=== PATIENT | female | born 1975 | race Caucasian/White ===

== ENCOUNTER 2016-11-14 22:30 | Emergency (ER) | payer OTHER ==
[~2016-11-14] VITALS: Ht 165.1 cm; Wt 90.5 kg
[~2016-11-14 22:30] MED LIST: ABILIFY5 MG PO; ADIPEX-P37.5 MG PO; ALBUTEROL0.09 MG/A1 IH; ALDACTONE 25MG25 M1 PO; AMOXICILLIN 50500 MG PO; ASPIRIN E.C. 8181 MG PO; ATIVAN 1MG T1 MG/TAB PO; ATIVAN0.5 MG PO; AUGMENTIN 875 M1 TAB PO; BACTRIM DS 8001 TA1 PO; BACTRIM DS 8001 TAB PO; CELEXA10 MG PO; Dayquil; FIORICET 325 MG1 TA1 PO; FISH OIL1000 MG PO; FLEXERIL 1010 MG/TAB PO; FLEXERIL10 MG PO; FLOMAX0.4 MG PO; IBU800 M1 PO; KETOROLAC10 MG PO; LIPITOR 40MG TA40 MG PO; LORTAB 5/500 501 TAB PO; MEDROL 4MG DOSPA4 MG PO; MIDOL; MOTRIN 800800 MG/TAB PO; MUCINEX D 600 M1 TER PO; NAPROSYN500 MG PO; NO HOME MEDICATIONS; NORCO 325 MG-51 TAB PO; PERCOCET 325 MG1 TA2 PO; PERCOCET 5/321 UDTAB PO; PHENERGAN 25 TA25 MG PO; PHENTERAMINE; PHENTERMINE30 MG PO; PLAVIX 75MG TAB75 MG PO; PRINIVIL2.5 MG PO; PYRIDIUM200 M1 PO; THALITONE15 MG; TYLENOL PM; ULTRAM 50MG TAB50 MG; ULTRAM 50MG TAB50 MG PO; UNABLE; VICODIN 5/5001 UDTAB PO; XANAX .25M0.25 MG/TA PO; XANAX 1MG1 MG PO; ZOFRAN 4MG T4 MG/TAB PO; [UNRECOGNIZED DRUG - OTHER]; [UNRECOGNIZED DRUG - REMARK]
[2016-11-14 22:41] VITALS: TEMP 98
[2016-11-14 23:47] LABS: COLLECTION METHOD CLEAN CATCH
[2016-11-14 23:54] LABS: MUCOUS Present /lpf; PH 6 (5-8); SQUAMOUS EPITHELIAL 0-2 /hpf; URINE APPEARANCE Clear; URINE BACTERIA None Seen /hpf; URINE BILIRUBIN Negative (NEGATIVE); URINE BLOOD Negative (NEGATIVE); URINE COLOR Yellow; URINE GLUCOSE Negative (NEGATIVE); URINE KETONE Negative (NEGATIVE); URINE LEUKOCYTE ESTERASE Negative (NEGATIVE); URINE PROTEIN(semi-quant) Negative (NEGATIVE); URINE RBC 0-2 /hpf; URINE UROBILINOGEN Negative (NEGATIVE); URINE WBC 0-2 /hpf
[2016-11-15 00:14] LABS: BASO % 0.2 % (0.0-2.0); EOS # 0.2 (0.0-0.7); GRAN # 6.4 (1.4-6.5); GRAN % 58.1 % (42.2-75.2); HEMATOCRIT 43.2 % (37.0-47.0); HEMOGLOBIN 14.9 g/dl (12.5-16.0); LYMPH # 3.6 (1.2-3.4); MEAN CELL VOLUME 92 fl (80.0-100.0); MEAN CORPUSCULAR HEMOGLOBIN 32 pg (27.0-31.0); MEAN CORPUSCULAR HGB CONC 35 g/dl (33.0-37.0); MEAN PLATELET VOLUME 10.4 fl (7.4-10.4); MONO # 0.7 (0.1-0.6); MONO % 6.3 % (1.7-9.3); PLATELET COUNT 228 K/mm3 (130-400); RED BLOOD COUNT 4.69 M/mm3 (4.10-5.30)
[2016-11-15 00:28] LABS: ADJUSTED CALCIUM 9.1 mg/dL (8.4-10.2); ALBUMIN 4.3 gm/dL (3.5-5.0); BILIRUBIN,TOTAL 0.6 mg/dL (0.0-1.0); CALCIUM 9.3 mg/dL (8.4-10.2); CREATININE, serum 0.8 mg/dL (0.52-1.25); POTASSIUM 4.3 mmol/L (3.4-5.0); TOTAL PROTEIN 7.4 gm/dL (6.4-8.2)
[2016-11-15 01:05] VITALS: BP 128/80; PULSE 92
[2016-11-15 11:06] LABS: CHLAMYDIA/TRACH by PCR Female NOT DETECTED; NEISSERIA GON by PCR Female NOT DETECTED
== END 2016-11-15 01:07 | disposition home or self-care (01) ==
LOC: COL.ER 22:30
PROVIDERS: Nurse Practitioner
DX: R10.32 Left lower quadrant pain (principal); M54.5 Low back pain; R11.0 Nausea; Z87.442 Personal history of urinary calculi; I25.2 Old myocardial infarction; F17.210 Nicotine dependence, cigarettes, uncomplicated; N89.8 Other specified noninflammatory disorders of vagina
CPT/HCPCS: J1885; J2405; J7030

== ENCOUNTER 2016-12-11 20:33 | Emergency (ER) | payer OTHER ==
[~2016-12-11] VITALS: Ht 165.1 cm; Wt 90.0 kg
[2016-12-11 20:36] VITALS: TEMP 98.8
[2016-12-11] MEDS ORDERED: PERCOCET 325 MG1 TA2 PO (20:40)
[2016-12-11 23:18] VITALS: BP 128/94; PULSE 100
== END 2016-12-11 22:57 | disposition home or self-care (01) ==
LOC: COL.ER 20:33
DX: M79.661 Pain in right lower leg (principal); F32.9 Major depressive disorder, single episode, unspecified; F41.9 Anxiety disorder, unspecified
CPT/HCPCS: J1885

== ENCOUNTER 2017-12-02 01:38 | Emergency (ER) | payer OTHER ==
[2017-12-02 01:44] VITALS: TEMP 97
[2017-12-02] MEDS ORDERED: PERCOCET 325 MG1 TA2 PO (01:59)
[2017-12-02] MEDS ORDERED: KLONOPIN2 MG PO (01:59)
[2017-12-02] MEDS ORDERED: TOPROL XL 50MG50 MG PO (02:00)
[2017-12-02 02:07] LABS: BASO % 0.3 % (0.0-2.0); EOS # 0.4 (0.0-0.7); EOS % 3.4 % (0-4.0); GRAN # 5.4 (1.4-6.5); GRAN % 52.7 % (42.2-75.2); HEMATOCRIT 41.5 % (37.0-47.0); HEMOGLOBIN 14.6 g/dl (12.5-16.0); LYMPH # 3.8 (1.2-3.4); LYMPH % 36.7 % (20.0-51.0); MEAN CELL VOLUME 91 fl (80.0-100.0); MEAN CORPUSCULAR HEMOGLOBIN 32 pg (27.0-31.0); MEAN CORPUSCULAR HGB CONC 35 g/dl (33.0-37.0); MEAN PLATELET VOLUME 8.9 fl (7.4-10.4); MONO # 0.7 (0.1-0.6); MONO % 6.6 % (1.7-9.3); PLATELET COUNT 226 K/mm3 (130-400); RED BLOOD COUNT 4.58 M/mm3 (4.10-5.30); REDCELL DISTRIBUTION WIDTH-CV 12.8 % (11.5-14.5)
[2017-12-02] MEDS ORDERED: ADIPEX-P37.5 MG PO (02:13)
[2017-12-02 02:18] LABS: ALBUMIN 4.2 gm/dL (3.5-5.0); BILIRUBIN,TOTAL 0.3 mg/dL (0.0-1.0); CALCIUM 9.1 mg/dL (8.4-10.2); CREATININE, serum 0.74 mg/dL (0.52-1.25); POTASSIUM 3.5 mmol/L (3.4-5.0); TOTAL PROTEIN 7.4 gm/dL (6.4-8.2)
[2017-12-02] MEDS ORDERED: LACRI-LUBE1 OIN OS (04:58)
[2017-12-02] MEDS ORDERED: PREDNISONE10 MG PO (04:58)
[2017-12-02 05:18] VITALS: BP 96/65; PULSE 89
== END 2017-12-02 05:19 | disposition home or self-care (01) ==
LOC: COL.ER 01:38
PROVIDERS: Emergency Medicine
DX: G51.0 Bell's palsy (principal); I10 Essential (primary) hypertension; G43.909 Migraine, unspecified, not intractable, without status migrainosus; F41.9 Anxiety disorder, unspecified; F17.210 Nicotine dependence, cigarettes, uncomplicated; F32.9 Major depressive disorder, single episode, unspecified; Z98.51 Tubal ligation status; Z98.890 Other specified postprocedural states
CPT/HCPCS: J0780; J7030; J7512

== ENCOUNTER 2019-09-26 01:36 | Emergency (ER) | payer SELFPAY ==
[~2019-09-26] VITALS: Ht 165.1 cm; Wt 91.8 kg
[~2019-09-26 01:36] MED LIST changes: +KLONOPIN2 MG PO; +LACRI-LUBE1 OIN OS; +PREDNISONE10 MG PO; +TOPROL XL 50MG50 MG PO
[2019-09-26 01:52] LABS: COLLECTION METHOD CLEAN CATCH
[2019-09-26 02:05] LABS: BASO % 0.2 % (0.0-2.0); EOS # 0.2 (0.0-0.7); EOS % 0.9 % (0-4.0); GRAN # 15.7 (1.4-6.5); GRAN % 82.7 % (42.2-75.2); HEMOGLOBIN 15.4 g/dl (12.5-16.0); LYMPH # 2.1 (1.2-3.4); LYMPH % 11.2 % (20.0-51.0); MEAN CELL VOLUME 92 fl (80.0-100.0); MEAN CORPUSCULAR HEMOGLOBIN 31 pg (27.0-31.0); MEAN CORPUSCULAR HGB CONC 34 g/dl (33.0-37.0); MEAN PLATELET VOLUME 9.1 fl (7.4-10.4); MONO # 0.9 (0.1-0.6); MONO % 4.5 % (1.7-9.3); PLATELET COUNT 209 K/mm3 (130-400); RED BLOOD COUNT 4.98 M/mm3 (4.10-5.30); REDCELL DISTRIBUTION WIDTH-CV 13.2 % (11.5-14.5)
[2019-09-26 02:07] LABS: TRICYCLIC ANTIDEPRESS URINE NEGATIVE
[2019-09-26 02:08] LABS: MUCOUS Present /lpf; PH 5 (5-8); URINE APPEARANCE Cloudy; URINE BACTERIA None Seen /hpf; URINE BILIRUBIN Negative (NEGATIVE); URINE BLOOD 3+ (NEGATIVE); URINE COLOR Yellow; URINE GLUCOSE 1+ (NEGATIVE); URINE KETONE Negative (NEGATIVE); URINE LEUKOCYTE ESTERASE Negative (NEGATIVE); URINE NITRATE Negative (NEGATIVE); URINE PROTEIN(semi-quant) 1+ (NEGATIVE); URINE RBC >50 /hpf; URINE UROBILINOGEN Negative (NEGATIVE)
[2019-09-26 02:17] LABS: ALBUMIN 4.8 gm/dL (3.5-5.0); BILIRUBIN,TOTAL 0.8 mg/dL (0.0-1.0); CALCIUM 9.6 mg/dL (8.4-10.2); CREATININE, serum 1.09 (0.52-1.25); POTASSIUM 4.1 mmol/L (3.4-5.0); TOTAL PROTEIN 8.4 gm/dL (6.4-8.2)
[2019-09-26] MEDS ORDERED: VOLTAREN 75 DR75 MG PO (03:09)
[2019-09-26] MEDS ORDERED: ZOFRAN ODT4 MG SL (03:10)
[2019-09-26] MEDS ORDERED: NORCO 325 MG-51 TAB PO (03:10)
[2019-09-26 03:39] VITALS: BP 116/88; PULSE 80; TEMP 97
[2019-09-26] MEDS ORDERED: DULCOLAX STOOL100 MG PO (19:05)
[2019-09-26] MEDS ORDERED: MIRALAX238G PO (19:05)
[2019-09-26] MEDS ORDERED: PHENERGAN 25 TA25 MG PO (19:05)
== END 2019-09-26 03:40 | disposition home or self-care (01) ==
LOC: COL.ER 01:36
PROVIDERS: Emergency Medicine
DX: N21.1 Calculus in urethra (principal); N13.2 Hydronephrosis with renal and ureteral calculous obstruction; I10 Essential (primary) hypertension; Z32.02 Encounter for pregnancy test, result negative; Z79.899 Other long term (current) drug therapy; Z98.890 Other specified postprocedural states; F17.210 Nicotine dependence, cigarettes, uncomplicated
CPT/HCPCS: J1885; J2405; J3010; J7030

== ENCOUNTER 2019-09-26 17:23 | Emergency (ER) | payer SELFPAY ==
[~2019-09-26] VITALS: Ht 165.1 cm; Wt 91.8 kg
[~2019-09-26 17:23] MED LIST changes: +VOLTAREN 75 DR75 MG PO; +ZOFRAN ODT4 MG SL
[2019-09-26 17:30] VITALS: BP 180/98; TEMP 96.8
[2019-09-26] MEDS ORDERED: MIRALAX238G PO (19:05)
[2019-09-26] MEDS ORDERED: PHENERGAN 25 TA25 MG PO (19:05)
[2019-09-26] MEDS ORDERED: DULCOLAX STOOL100 MG PO (19:05)
[2019-09-26 19:14] VITALS: PULSE 58
== END 2019-09-26 19:30 | disposition home or self-care (01) ==
LOC: COL.ER 17:23
DX: N20.2 Calculus of kidney with calculus of ureter (principal); Z79.52 Long term (current) use of systemic steroids
CPT/HCPCS: J0780; J1885; J2270; J7030

== ENCOUNTER 2020-01-04 12:21 | Emergency (ER) | payer SELFPAY ==
[~2020-01-04] VITALS: Ht 165.1 cm; Wt 86.4 kg
[~2020-01-04 12:21] MED LIST changes: +DULCOLAX STOOL100 MG PO; +MIRALAX238G PO
[2020-01-04 12:38] VITALS: TEMP 98.1
[2020-01-04 13:34] LABS: COLLECTION METHOD CLEAN CATCH
[2020-01-04 13:39] LABS: BASO % 0.2 % (0.0-2.0); EOS % 0.1 % (0-4.0); GRAN # 10.5 (1.4-6.5); GRAN % 84.2 % (42.2-75.2); HEMATOCRIT 43.8 % (37.0-47.0); HEMOGLOBIN 15.2 g/dl (12.5-16.0); LYMPH % 8.3 % (20.0-51.0); MEAN CELL VOLUME 90 fl (80.0-100.0); MEAN CORPUSCULAR HEMOGLOBIN 31 pg (27.0-31.0); MEAN CORPUSCULAR HGB CONC 35 g/dl (33.0-37.0); MEAN PLATELET VOLUME 9.7 fl (7.4-10.4); MONO # 0.9 (0.1-0.6); MONO % 6.8 % (1.7-9.3); PLATELET COUNT 175 K/mm3 (130-400); RED BLOOD COUNT 4.88 M/mm3 (4.10-5.30); REDCELL DISTRIBUTION WIDTH-CV 12.1 % (11.5-14.5)
[2020-01-04 13:40] LABS: PH 6 (5-8); SQUAMOUS EPITHELIAL 0-2 /hpf; URINE APPEARANCE Clear; URINE BACTERIA Rare /hpf; URINE BILIRUBIN Negative (NEGATIVE); URINE BLOOD 1+ (NEGATIVE); URINE COLOR Straw; URINE GLUCOSE Negative (NEGATIVE); URINE KETONE Negative (NEGATIVE); URINE LEUKOCYTE ESTERASE Negative (NEGATIVE); URINE NITRATE Negative (NEGATIVE); URINE PROTEIN(semi-quant) Negative (NEGATIVE); URINE RBC None Seen /hpf; URINE UROBILINOGEN Negative (NEGATIVE)
[2020-01-04 13:50] LABS: ALBUMIN 4.3 gm/dL (3.5-5.0); BILIRUBIN,TOTAL 0.8 mg/dL (0.0-1.0); CALCIUM 9.3 mg/dL (8.4-10.2); POTASSIUM 3.8 mmol/L (3.4-5.0)
[2020-01-04] MEDS ORDERED: PHENERGAN 25 TA25 MG PO (14:58)
[2020-01-04 15:09] VITALS: BP 126/76; PULSE 107
== END 2020-01-04 15:42 | disposition home or self-care (01) ==
LOC: COL.ER 12:21
PROVIDERS: Emergency Medicine
DX: B34.9 Viral infection, unspecified (principal); R11.0 Nausea; Z20.828 Contact with and (suspected) exposure to other viral communicable diseases; Z79.52 Long term (current) use of systemic steroids
CPT/HCPCS: J1885; J2550; J7030

== ENCOUNTER → 2020-03-19 | Outpatient (CLI) | payer OTHER | LOC: MC.RAD 08:45 | DX: Z12.31 Encounter for screening mammogram for malignant neoplasm of breast (principal); N63.20 Unspecified lump in the left breast, unspecified quadrant ==

== ENCOUNTER 2020-06-17 20:18 | Emergency (ER) | payer SELFPAY ==
[~2020-06-17] VITALS: Ht 165.1 cm; Wt 95.0 kg
[2020-06-17] MEDS ORDERED: SINEQUAN 1010 MG/CAP PO (20:57)
[2020-06-17 21:33] LABS: COLLECTION METHOD CLEAN CATCH
[2020-06-17 21:39] LABS: MUCOUS Present /lpf; PH 5 (5-8); URINE APPEARANCE Hazy; URINE BACTERIA None Seen /hpf; URINE BILIRUBIN Negative (NEGATIVE); URINE BLOOD Negative (NEGATIVE); URINE COLOR Yellow; URINE GLUCOSE Negative (NEGATIVE); URINE KETONE Negative (NEGATIVE); URINE LEUKOCYTE ESTERASE Negative (NEGATIVE); URINE NITRATE Negative (NEGATIVE); URINE PROTEIN(semi-quant) Negative (NEGATIVE); URINE RBC 0-2 /hpf; URINE UROBILINOGEN Negative (NEGATIVE)
[2020-06-17 22:35] LABS: BASO % 0.4 % (0.0-2.0); EOS # 0.3 (0.0-0.7); GRAN % 48.6 % (42.2-75.2); HEMATOCRIT 42.6 % (37.0-47.0); HEMOGLOBIN 14.6 g/dl (12.5-16.0); LYMPH # 4.2 (1.2-3.4); LYMPH % 40.9 % (20.0-51.0); MEAN CELL VOLUME 91 fl (80.0-100.0); MEAN CORPUSCULAR HEMOGLOBIN 31 pg (27.0-31.0); MEAN CORPUSCULAR HGB CONC 34 g/dl (33.0-37.0); MEAN PLATELET VOLUME 9.5 fl (7.4-10.4); MONO # 0.7 (0.1-0.6); MONO % 6.9 % (1.7-9.3); PLATELET COUNT 219 K/mm3 (130-400); RED BLOOD COUNT 4.66 M/mm3 (4.10-5.30); REDCELL DISTRIBUTION WIDTH-CV 12.3 % (11.5-14.5)
[2020-06-17 22:43] LABS: ALANINE AMINOTRANSFERASE 21 U/L (4-34); ALBUMIN 4.4 gm/dL (3.5-5.0); ALKALINE PHOSPHATASE 52 U/L (50-136); ANION GAP 9 mmol/L (7-16); AST,SGOT 25 U/L (15-37); BILIRUBIN,TOTAL 0.6 mg/dL (0.0-1.0); BLOOD UREA NITROGEN 20 mg/dL (7-17); CARBON DIOXIDE 24 mmol/L (22-30); CHLORIDE 103 mmol/L (98-107); CREATININE, serum 0.76 (0.52-1.25); GLUCOSE 96 mg/dL (74-106); LIPASE 85 U/L (23-300); POTASSIUM 4.3 mmol/L (3.4-5.0); SODIUM 136 mmol/L (137-145); TOTAL PROTEIN 7.5 gm/dL (6.4-8.2)
[2020-06-17 22:45] LABS: C-REACTIVE PROTEIN < 0.5 mg/dL (0.0-0.9)
[2020-06-18] MEDS ORDERED: ZOFRAN ODT4 MG PO (00:33)
[2020-06-18 00:43] VITALS: BP 125/81; PULSE 75; TEMP 98
== END 2020-06-18 00:49 | disposition home or self-care (01) ==
LOC: COL.ER 20:18
PROVIDERS: Nurse Practitioner
DX: R10.9 Unspecified abdominal pain (principal); R11.0 Nausea; F17.210 Nicotine dependence, cigarettes, uncomplicated; Z87.442 Personal history of urinary calculi
CPT/HCPCS: J1885; J2270; J2405; J7030; Q9967

== ENCOUNTER 2020-08-05 04:02 | Emergency (ER) | payer OTHER ==
[~2020-08-05] VITALS: Ht 165.1 cm; Wt 89.5 kg
[~2020-08-05 04:02] MED LIST changes: +SINEQUAN 1010 MG/CAP PO; +ZOFRAN ODT4 MG PO
[2020-08-05 04:13] VITALS: TEMP 97.1
[2020-08-05 04:48] LABS: BASO % 0.4 % (0.0-2.0); EOS # 0.2 (0.0-0.7); GRAN # 6.3 (1.4-6.5); GRAN % 62.2 % (42.2-75.2); HEMATOCRIT 42.3 % (37.0-47.0); HEMOGLOBIN 14.4 g/dl (12.5-16.0); LYMPH # 2.9 (1.2-3.4); LYMPH % 28.4 % (20.0-51.0); MEAN CELL VOLUME 92 fl (80.0-100.0); MEAN CORPUSCULAR HEMOGLOBIN 31 pg (27.0-31.0); MEAN CORPUSCULAR HGB CONC 34 g/dl (33.0-37.0); MEAN PLATELET VOLUME 8.9 fl (7.4-10.4); MONO # 0.7 (0.1-0.6); MONO % 6.8 % (1.7-9.3); PLATELET COUNT 201 K/mm3 (130-400); RED BLOOD COUNT 4.61 M/mm3 (4.10-5.30); REDCELL DISTRIBUTION WIDTH-CV 12.7 % (11.5-14.5)
[2020-08-05 05:01] LABS: ALANINE AMINOTRANSFERASE 21 U/L (4-34); ALBUMIN 3.9 gm/dL (3.5-5.0); ALKALINE PHOSPHATASE 59 U/L (50-136); ANION GAP 7 mmol/L (7-16); AST,SGOT 20 U/L (15-37); BILIRUBIN,TOTAL 0.7 mg/dL (0.0-1.0); BLOOD UREA NITROGEN 15 mg/dL (7-17); CALCIUM 8.8 mg/dL (8.4-10.2); CARBON DIOXIDE 24 mmol/L (22-30); CHLORIDE 105 mmol/L (98-107); CREATININE, serum 0.81 (0.52-1.25); GLUCOSE 106 mg/dL (74-106); LIPASE 63 U/L (23-300); POTASSIUM 4.1 mmol/L (3.4-5.0); SODIUM 136 mmol/L (137-145)
[2020-08-05 05:15] LABS: TROPONIN-I < 0.012 ng/mL (0.000-0.035)
[2020-08-05 06:51] VITALS: BP 121/80; PULSE 97
== END 2020-08-05 06:51 | disposition left against medical advice (07) ==
LOC: COL.ER 04:02
PROVIDERS: Family Medicine
DX: R10.10 Upper abdominal pain, unspecified (principal); R11.0 Nausea; M54.2 Cervicalgia; R00.2 Palpitations
CPT/HCPCS: J7030; Q9967